=== PATIENT | male | born 2005 ===

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

== ENCOUNTER 2024-09-04 15:19 | Emergency (ER) | payer OTHER, SELFPAY ==
--- NOTE | ~2024-09-04 | XR_ITS ---
EXAMINATION: XR KNEE 3 VIEWS RIGHT HISTORY: laceration COMPARISON: There are no prior studies available for comparison. FINDINGS: Four views of the right knee are submitted. Osseous mineralization is normal. There is no fracture or dislocation. The joint spaces are preserved. The soft tissues are unremarkable. There is no joint effusion. XR/XR knee RT 4V IMPRESSION: Unremarkable examination of the right knee. Electronically signed by: Manjinder Muñiz MD 09/04/2024 03:51 PM EDT
[2024-09-04 15:26] VITALS: BP 123/52; PULSE 65; RESP 18; TEMP 36.3; O2SAT 99; BMI 21.1
--- NOTE | 2024-09-04 15:29 | ED.SKABFB ---
HPI - Skin/Abscess/Foreign Bdy General Chief complaint: Wound/Laceration Stated complaint: Leg lac Time Seen by Provider: 09/04/24 16:09 Source: patient Mode of arrival: ambulatory Limitations: no limitations History of Present Illness ED Provider: Dr. Radha Mendoza HPI narrative: Patient comes to the emergency room complaining of a laceration to the right knee. Patient states that he was throwing the trash away, patient has long the bag and scraped his knee. Patient did not know the was last inside of the bag. Patient did not sustain any other injuries. Patient is not sure if he is up-to-date with his Tdap booster. Related Data Previous Rx's ?Medication ?Instructions ?Recorded docusate sodium 100 mg capsule 100 mg PO DAILY #30 caps 10/16/22 ibuprofen 600 mg tablet 600 mg PO Q6H PRN pain #14 tabs 10/16/22 ondansetron 4 mg disintegrating 4 mg PO Q6-8H PRN nausea and 10/16/22 tablet vomiting #14 tabs polyethylene glycol 3350 17 17 g PO DAILY PRN constipation 10/16/22 gram/dose oral powder (Miralax) #119 grams Allergies Allergy/AdvReac Type Severity Reaction Status Date / Time SEASONAL ALLERGIES Allergy Unknown HIVES, Uncoded 09/04/24 15:31 ITCHING Review of Systems Review of Systems: Constitutional : No Weight loss, No Fever, No Chills, No Night Sweats, No Fatigue, No Malaise ENT/Mouth : No Hearing loss, No Ear Pain, No Nasal Congestion, No Sinus Pain, No Hoarseness, No sore throat, No Rhinorrhea, No Swallowing Difficulty Eyes: No Eye Pain, No Swelling, No Redness, No Foreign Body, No Discharge, No Vision Changes Cardiovascular : No Chest Pain, No SOB, No Dyspnea on Exertion, No Orthopnea, No Edema, No Palpitations Respiratory : No Cough, No Sputum, No Wheezing, No Smoke Exposure, No Dyspnea Gastrointestinal : No Nausea, No Vomiting, No Diarrhea, No Constipation, No abdominal Pain, No Hematochezia, No Melena Genitourinary : no irregular bleeding, No Dysuria, No Urinary Frequency, No Hematuria, No Urinary Incontinence, No Urgency, No Flank Pain, No Urinary Flow Changes, No Hesitancy Musculoskeletal : No joint pain, No Myalgias, No Joint Swelling Skin : Complaining of a laceration lateral to the right knee. Neuro : No Weakness, No Numbness, No Paresthesias, No Loss of Consciousness, No Dizziness, No Headache Psych : No Anxiety/Panic, No Depression, No SI/HI/AH/VH, No Social Issues, Heme/Lymph: No Bruising, No Bleeding,No Lymphadenopathy Endocrine : No Polyuria, No Polydipsia, No Temperature Intolerance PMFSH Social History Social History Alcohol intake: never Advance Directives: No Advance Directives Information Provided: Yes Physical Exam Vital Signs: Vital Signs: Last Vital Signs Temp 97.3 F 09/04/24 15: Pulse 65 09/04/24 15:26 Resp 18 09/04/24 15:26 BP 123/52 L 09/04/24 15: Pulse Ox 99 09/04/24 15: O2 Del Method Room Air 09/04/24 15:26 BMI result Body Mass Index 21.1 Const: Other: Appearance: Alert. Oriented X3. No acute distress. Eyes: Pupils equal, round and reactive to light. ENT: Pharynx normal. Neck: Normal inspection. Neck supple. No lymph nodes noted. No crepitus CVS: Normal heart rate and rhythm. Pulses normal. Normal S1 and S2 Respiratory: No respiratory distress. Breath sounds normal. No Wheezing. No rales Abdomen: Soft and nontender. No rigidity. No distention. Skin: Skin warm and dry. Normal skin color. Normal skin turgor. Extremities: No lower extremity edema. No Lacerations. No Rash . There is a 5 cm laceration lateral to the patella on the right knee., no injury to the muscle or deep structures. Neuro: Oriented X 3. No motor deficit. No sensory deficit. Moving all extremities. No slurred speech. CN 2 through 12 grossly intact Psych: calm, cooperative, normal affect Course Course Course Narrative: This is an RME: Additional HPI, ROS, PE not included below will be deferred to primary provider. RME assessment and note performed by: Kellie Skinner PA-C This is a 19-year-old male who presents emergency department with complaints of right leg laceration. Accidentally lacerated his right leg on a piece of glass. Unsure of tetanus status. 5cm partial thickness laceration noted to right lateral leg, no active bleeding. Reports that while he was cleaning out the wound he passed out for a second. No head strike. Plan: xray, wound repair Medications Administered Discontinued Medications Generic Name Dose Route Start Last Admin Trade Name Freq PRN Reason Stop Dose Admin Diphtheria/Tetanus/Acell Pertussis 0.5 ml 09/04/24 15:30 09/04/24 16:25 Diphth,Pertus(Acell),Tet Adult 0.5 Ml Syringe IM 09/04/24 15:31 0.5 ml .ONCE ONE Administration Lidocaine HCl 5 ml 09/04/24 15:30 09/04/24 16:25 Lidocaine Hcl 1 % Mpf 5 Ml Vial EPIDURAL 09/04/24 15:31 5 ml ONCE ONE Administration Medical Decision Making Medical Decision Making MDM Narrative: The skin was infiltrated with 5 mL of lidocaine 1% no epinephrine. Seven stitches were applied, patient tolerated well the procedure. Patient received a Tdap booster Procedures Laceration Laceration 1: Site: lower extremity Side (If applicable): right Size (cm): 5 Description: linear Depth: simple, single layer Local Anesthetic: lidocaine 1% Amount of anesthesia used (mL): 5 Pre-repair: wound explored Skin layer closed with: nylon Size (cm): 3-0 Number of sutures: 7 Technique: simple, interrupted Discharge Plan Discharge Clinical Impression: Laceration Patient Disposition: Home, Self-Care Instructions: Laceration (ED) Additional Instructions: Please follow-up with your primary care physician tomorrow. If you have any worsening or new symptoms, please return to the emergency room or call 911 Prescriptions: No Action polyethylene glycol 3350 [Miralax] 17 gram/dose powder 17 g PO DAILY PRN (Reason: constipation) Qty: 119 0RF docusate sodium 100 mg capsule 100 mg PO DAILY Qty: 30 0RF ondansetron 4 mg tablet,disintegrating 4 mg PO Q6-8H PRN (Reason: nausea and vomiting) Qty: 14 0RF ibuprofen 600 mg tablet 600 mg PO Q6H PRN (Reason: pain) Qty: 14 0RF Stand Alone Forms: Work/School Release Print Language: Macedonian
[2024-09-04] MEDS: Diphth,Pertus(ACell),Tet Adult 0.5 ML SYRINGE IM (16:25)
[2024-09-04] MEDS: Lidocaine HCl 1 % MPF 5 ML VIAL EPIDURAL (16:25)
[2024-09-04 17:34] VITALS: BP 123/52; PULSE 65; RESP 18; TEMP 36.3; O2SAT 99
--- OUTSIDE RECORDS SUMMARY | 2024-09-04 18:19 | XMS_ITS | Encounter Summary ---
Author Organization [facility] Address [address] [place] [phone] Phone Care Team Providers Care Fretted Instrument Inspector Name Role Phone Delta Amado MD Primary Care Provider [phone] Encounter Details Date Type Department Care Team (Late st Contact Info) Description 08/24/2009 [place] [facility] [place] [address] [place], [place] [phone] Family Medicine, Physician [address] [place], [place] [phone] Social History Tobacco Use Types Packs/Day Years Used Date Smoking Tobacco: Never Assessed Sex and Gender Information Value Date Recorded Sex Assigned at Not on file Legal Sex Male 5:10 PM EDT Gender Identity Not on file Sexual Orientation Not on file documented as of this encounter Plan of Treatment Not on file documented as of this encounter Visit Diagnoses Not on filedocumented in this encounter Care Teams Fretted Instrument Inspector Relationship Specialty Start Date End Date Delta Amado MD [address] [place] [address] [place] [address] PCP - General Pediatrics 04/10/19 09/01/22 documented as of this encounter
--- OUTSIDE RECORDS SUMMARY | 2024-09-04 18:19 | XMS_ITS | Encounter Summary ---
Author Organization [facility] Address [address] [place] [phone] Phone Care Team Providers Care Manager Baby Name Role Phone Delta Amado MD Primary Care Provider [phone] Encounter Details Date Type Department Care Team (Late st Contact Info) Description 09/09/2016 [place] [facility] [place] [address] [place], [place] [phone] Family Medicine, Physician [address] [phone] Social History Tobacco Use Types Packs/Day Years [...] on filedocumented in this encounter Care Teams Manager Baby Relationship Specialty Start Date End Date Delta Amado MD [address] [place] [address] [place] [id number] PCP - General Pediatrics 04/10/19 09/01/22 documented as of this encounter
--- OUTSIDE RECORDS SUMMARY | 2024-09-04 18:19 | XMS_ITS | Encounter Summary ---
Author Organization [facility] Address [address] [place] [phone] Phone Care Team Providers Care Chemical Operator Name Role Phone Delta Amado MD Primary Care Provider [phone] Encounter Details Date Type Department Care Team (Late st Contact Info) Description 09/09/2016 [place] [facility] [place] [address] [place], [place] [phone] Family Medicine, Physician [address] [phone] Social History Tobacco Use Types Packs/Day Years [...] on filedocumented in this encounter Care Teams Chemical Operator Relationship Specialty Start Date End Date Delta Amado MD [address] [place] [address] [place] [address] PCP - General Pediatrics 04/10/19 09/01/22 documented as of this encounter
--- OUTSIDE RECORDS SUMMARY | 2024-09-04 18:19 | XMS_ITS | Encounter Summary ---
Author Organization [facility] Address [address] [place] [phone] Phone Care Team Providers Care Staff Air Defense Officer Name Role Phone Delta Amado MD Primary Care Provider [phone] Encounter Details Date Type Department Care Team (Late st Contact Info) Description 01/05/2017 Conversion Encounter [facility] [place] [address] [place] [address] Social History Tobacco Use Types Packs/Day Years [...] on filedocumented in this encounter Care Teams Staff Air Defense Officer Relationship Specialty Start Date End Date Delta Amado MD [address] [place] [address] PCP - General Pediatrics 04/10/19 09/01/22 documented as of this encounter
--- OUTSIDE RECORDS SUMMARY | 2024-09-04 18:19 | XMS_ITS | Clinical Summary ---
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 Rinse mouth with water after use, do not swallow. 1 Units 5 7 Active Nebulizers (COMPRESSOR NEBULIZER) miscIndications: Mild persistent asthma without complication 1 Units every 4 (four) hours as needed (wheeze). 1 each 7 Active albuterol (2.5 MG/3ML) 0.083% nebulizer solutionIndicati ons:Mild persistent asthma without complication Take 3 mL (2.5 mg total) by nebulization every 4 (four) hours as needed for wheezing or shortness of breath. 1 Package 7 Active Active Problems Problem Noted Date Diagnosed Date Mild persistent asthma without complication 12/21 Overview (05/31/2017): Began using Flovent in [place] in 2016 Learning difficulty 01/13/2016 Partial hearing loss, unspecified laterality Childhood overweight, BMI 85-94.9 percentile 06/2009 Immunizations Immunization Administration Dates Next Due DTaP 5 12/04/2008, 5,2003,08/20,2003 HPV Vaccine 9 Valent 04/19/2017,01/13/2016 Hep A, ped/adol 01/13/2016 Hep B, ped/adol 01/27/2004,2003,2003 Hib (HbOC) 07/20/2004, 4,2003,06/18 IPV 12/04/2008, 4,2003,06/18 Influenza Split 03/26/2013,05/21/2012,01/21/2010 Influenza, injectable, quadr ivalent, preservative free 04/19/2017,01/13/2016 Influenza, injectable, trivalent 009,03/11/2008,02/22/2007,04/13,04/28/2004,03/24/2004 MMR 12/04/2008,04/28/2004 Meningococcal Conj (Menactra) MCV4P 04/19/2017 Pneumococcal Conjugate 07/20/2004,2003,2003,06/18 Tdap 01/13/2016 Varicella 12/04/2008,04/28/2004 Family History Relation Name Status Comments Father Alive Father: Asthma Half-Sister Alive Half sister (P) : Alive and well Maternal Grandmother Alive Materna l grandmother: Alive and well Mother Alive Mother: Asthma Other 1 No family histo ry of *Heart Disease, No family history of Deafness, Family history of Hyperlipidemia, No family history of Seizure disorder, Family history of Migraines, No family history of *CVA/Stroke, Family history of *Sudden /NE under 55, No family history of Cancer, Family history of Obesity, No family history of Developmental dislocation of hip, Family history of Asthma, Family history of Diabetes mellitus, No family history of Strabismus, Family history of ADD/ADHD, Family history of Myocardial infarction under 55, No family history of *Dental caries Other 2 No family histo ry of *Heart Disease, No family history of Deafness, Family history of Hyperlipidemia, No family history of Seizure disorder, Family history of Migraines, No family history of *CVA/Stroke, Family history of *Sudden /NE under 55, No family history of Cancer, Family history of Obesity, No family history of Developmental dislocation of hip, Family history of Asthma, Family history of Diabetes mellitus, No family history of Strabismus, Family history of ADD/ADHD, Family history of Myocardial infarction under 55, No family history of *Dental caries Paternal Grandmother Alive Paterna l grandmother: Alive and well Social History Tobacco Use Types Packs/Day Years Used Date Smoking Tobacco: Never Sex and Gender Information Value Date Recorded Sex Assigned at Not on file Legal Sex Male 5:10 PM EDT Gender Identity Not on file Sexual Orientation Not on file Last Filed Vital Signs Vital Sign Reading Time Taken Comments Blood Pressure 125/77 04/19/2017 9:23 AM EST Pulse 78 04/19/2017 9:23 AM EST Temperature 36 ??C (96.8 ??F) 04/19/2017 9:23 AM EST Respiratory Rate 20 04/19/2017 9:23 AM EST Oxygen Saturation - - Inhaled Oxygen Concentration - - Weight 54.3 kg (119 lb 12.8 oz) 04/19/2017 9:23 AM EST Height 154.9 cm (5' 1 ) 04/19/2017 9:23 AM EST Body Mass Index 22.64 04/19/2017 9:23 AM EST Plan of Treatment Health Maintenance Due Date Last Done Comments Hepatitis A Vaccines (2 of 2 - 2-dose series) 07/15/2016 01/13/2016 Men B Vaccine (1 of 2 - Standard) 2019 Influenza Vaccines (#1) 2023 04/19/20 17, 01/13/2016, 03/26/2013, Additional history exists COVID-19 Vaccine ( - 2023- season) 2024 DTaP,Tdap,and Td Vaccines (7 - Td or Tdap) 01/12/2026 01/13/2016, 12/04/2008, 12/29/2004, Additional history exists Hepatitis B Vaccines Completed 01/27/2004, 2003, 2003 HIB Vaccines Completed 07/20/2004, 09/19, 2003, Additional history exists Pneumococcal Vaccine Completed 07/20/2004, 01/27/2004, 2003, Additional history exists IPV Vaccines Completed 12/04/2008, 09/19, 2003, Additional history exists MMR Vaccines Completed 12/04/2008, 04/28/2004 Varicella Vaccines Completed 12/04/2008, 04/28/2004 HPV Vaccines Completed 04/19/2017, 01/13/2016 Meningococcal Vaccine Aged Out 04/19/2017 No malissa farooq eligible based on patient's age to complete this topic Insurance [facility] NON [facility]
== END 2024-09-04 17:35 | disposition home or self-care (01) ==
PROVIDERS: Emergency Provider Emergency Medicine
DX: S81.011A Laceration without foreign body, right knee, initial encounter (principal); W25.XXXA Contact with sharp glass, initial encounter; Y93.E9 Activity, other interior property and clothing maintenance; Y92.017 Garden or yard in single-family (private) house as the place of occurrence of the external cause; Y99.9 Unspecified external cause status; Z23 Encounter for immunization
CPT/HCPCS: 12032; 73562; 73564; 90471; 90715; 99282; 99284; J2003

== ENCOUNTER → 2024-09-04 15:30 | Outpatient (BNV) | payer OTHER, SELFPAY | PROVIDERS: Visit Provider Radiology Diagnostic Radiology | DX: S81.011A Laceration without foreign body, right knee, initial encounter (principal) | CPT/HCPCS: 73564 ==